=== PATIENT | male | born 1955 | race Caucasian/White ===

== ENCOUNTER 2016-06-20 08:23 | Day surgery (SDC) | payer OTHER ==
[2016-06-19 11:21] VITALS: BMI 43.0
[2016-06-20] VITALS (11 sets, daily range): BP systolic 100–127; BP diastolic 55–72; PULSE 85–104; RESP 11–25; Ht 190.5 cm; Wt 154.9 kg
[~2016-06-20] VITALS: Ht 190.5 cm; Wt 154.9 kg
[~2016-06-20 08:23] MED LIST: HYDR12.53 PO
[2016-06-20] MEDS ORDERED: NEPAFENAC 0.1% 3 ML OPH OPER SCH (09:00)
[2016-06-20] MEDS ORDERED: MOXIFLOXACIN 0.5% 3 ML OPH OPER SCH (09:00)
[2016-06-20] MEDS ORDERED: PHENYLephrine 10% 5 ML OPH OPER SCH (09:00)
[2016-06-20] MEDS ORDERED: CYCLOPENTOLATE 2% 2 ML OPH OPER SCH (09:00)
[2016-06-20] MEDS ORDERED: TERA5CAP3 PO (09:11)
[2016-06-20] MEDS ORDERED: MTF1000T PO (09:11)
[2016-06-20] MEDS ORDERED: GABA-526 PO (09:12)
[2016-06-20] MEDS ORDERED: GLIP5TAB13 PO (09:12)
[2016-06-20] MEDS ORDERED: LISI10TA2 PO (09:13)
[2016-06-20] MEDS ORDERED: TAMS-14 PO (09:13)
[2016-06-20] MEDS ORDERED: LIDOCAINE 1% (MPF) 10 ML INJ ONE (10:06)
[2016-06-20] MEDS ORDERED: LIDOCAINE 2% (SDV) 5 ML INJ ONE ×2 (10:06→10:11)
[2016-06-20] MEDS ORDERED: BUPIVACAINE 0.75% (MPF) 10 ML INJ ONE (10:06)
[2016-06-20] MEDS ORDERED: TIMOLOL 0.5% 5 ML OPH ONE (10:06)
[2016-06-20] MEDS ORDERED: EPINEPHrine 1 MG INJ ONE (10:07)
[2016-06-20] MEDS ORDERED: PROPOFOL 20 ML ONE (10:11)
[2016-06-20] MEDS ORDERED: ONDANSETRON 4 MG INJ IV PRN (10:30)
[2016-06-20] MEDS ORDERED: FENTAnyl 50 MCG/ML VIAL IV PRN ×3 (10:30)
[2016-06-20] MEDS ORDERED: LIDOCAINE 1% (MPF) 10 ML INJ INJ ONE (10:30)
[2016-06-20] MEDS ORDERED: LABETALOL HCL 20MG INJ IV PRN (10:30)
[2016-06-20] MEDS ORDERED: FENTAnyl 50 MCG/ML VIAL ONE (10:50)
[2016-06-20] MEDS ORDERED: KETOROLAC 30 MG INJ ONE (11:12)
--- NOTE | 2016-06-20 18:17 | OPR ---
DATE OF OPERATION: 06/20/2016 SURGEON: Yolie Bolaños MD SOURCING ANALYST: None. PREOPERATIVE DIAGNOSIS: Senile nuclear sclerotic cataract, left eye. POSTOPERATIVE DIAGNOSIS: Senile nuclear sclerotic cataract, left eye. OPERATION: Kelman phacoemulsification with implantation of intraocular lens, left eye. DESCRIPTION OF PROCEDURE: Following standard preparation and draping of the patient, an aspirating lid speculum was placed for immobilization of the lids. A Superblade incision was made for access in to the anterior chamber. Approximately 0.5 ml of 1% unpreserved Xylocaine was instilled into the ant erior chamber, and after approximately 15 seconds, this was replaced with Viscoat. A clear corneal incision was then made using the 3.2 mm keratome, following which an anterior circul ar capsulorrhexis was made. The major portion of the lens cortex and nucleus was then dislocated fro m the capsular bag using hydrodissection. The KPE tip was introduced into the eye, and controlling m ovements of the lens with a two-handed technique, the major portion of the lens cortex and nucleus w as removed, maintaining the lens in the plane of the iris. The remaining cortical material was remov ed via the irrigating-aspirating instrument. The capsular bag and the anterior chamber were re-forme d using Viscoat. The proper power lens was then placed within the capsular bag. The viscoelastic was then removed from the eye and the eye re-formed with balanced salt solution. One 10-0 Vicryl suture was then used to ensure closure of the corneal incision. The eye was re-forme d to normal pressure using balanced salt solution. The eye and cul-de-sacs were now simply flooded w ith 5% Betadine solution. One drop of Vigamox and one drop of Betagan solution were instilled into the eye. A light pressure d ressing was applied, and the patient was returned to the recovery room in satisfactory condition. Dictated By: YOLIE SCOTT/LORI Conf#: [id number] DID#: [id number]
== END 2016-06-20 13:11 | disposition home or self-care (01) ==
LOC: SDS 08:23
PROVIDERS: ATTEND Ophthalmology
DX: H25.12 Age-related nuclear cataract, left eye (principal); I10 Essential (primary) hypertension; E11.9 Type 2 diabetes mellitus without complications; E66.01 Morbid (severe) obesity due to excess calories; Z68.41 Body mass index [BMI] 40.0-44.9, adult
CPT/HCPCS: 66984; 82962; J0171; J3010; V2632; Z7512; Z7610; J1885